=== PATIENT | female | born 1950 | race Two or more races ===

== ENCOUNTER 2018-03-28 09:49 | Outpatient (CLI) | payer OTHER | END 2018-03-28 09:51 | disposition home or self-care (01) | LOC: SONOGRAMA 09:49 | DX: E04.1 Nontoxic single thyroid nodule (principal) ==

== ENCOUNTER 2023-11-07 12:31 | Emergency (ER) | payer OTHER ==
[~2023-11-07] VITALS: Ht 167.6 cm; Wt 93.4 kg
[2023-11-07 15:23] LABS: HEMATOCRIT 34.7 % (39.0-48.0); HEMOGLOBIN 12.1 g/dL (13-16.00); MEAN CORPUSCULAR HEMOGLOBIN 33.5 pg (27.00-32.0); MEAN CORPUSCULAR HGB CONC 34.9 g/dl (32.0-36.0); PLATELET COUNT 241 K/uL (150-450); RED BLOOD COUNT 3.61 M/uL (4.00-6.00); RED CELL DISTRIBUTION WIDTH 14.5 % (11.5-14.5)
[2023-11-07 15:59] LABS: CALCIUM 9.5 mg/dL (8.5-10.1); CREATININE SERUM 1.15 mg/dL (0.70-1.30); GFR 61.99; POTASSIUM 3.41 mEq/L (3.5-5.1)
[2023-11-07 17:26] LABS: PH,URINE 6.5 (5.0-8.0); URINE APPEARANCE Clear; URINE BILIRRUBIN Negative (NEGATIVE); URINE BLOOD Negative; URINE COLOR Yellow; URINE GLUCOSE Negative (NEGATIVE); URINE LEUKOCYTE Trace; URINE NITRATE Negative; URINE PROTEIN Negative (NEGATIVE); URINE UROBILINOGEN 0.2 E.U./dl
[2023-11-07 17:30] LABS: URINE BACTERIA 23.9 uL (0.0-1933); URINE WBC 2.7 uL (0.0-23.2)
[2023-11-07 17:35] LABS: URINE RBC 1.7 uL (0.0-20.8)
[2023-11-07] MEDS ORDERED: VALSARTAN80 MG PO (20:38)
[2023-11-07] MEDS ORDERED: MINIPRESS5 MG PO (20:38)
[2023-11-07] MEDS ORDERED: ATIVAN2 M1 PO (20:39)
[2023-11-07] MEDS ORDERED: GLUMETZA1000 MG PO (20:39)
[2023-11-07] MEDS ORDERED: ASPRUZYO SPRI1000 MG PO (20:40)
== END 2023-11-08 08:15 | disposition home or self-care (01) ==
LOC: ER 12:31
PROVIDERS: General Practice
DX: R00.1 Bradycardia, unspecified (principal); T44.7X5A Adverse effect of beta-adrenoreceptor antagonists, initial encounter; Z20.822 Contact with and (suspected) exposure to COVID-19; I10 Essential (primary) hypertension; E11.9 Type 2 diabetes mellitus without complications; Z88.0 Allergy status to penicillin